=== PATIENT | male | born 2000 | race African-American/Black ===

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

== ENCOUNTER 2021-11-18 17:22 | Emergency (ER) | payer OTHER ==
[~2021-11-18] VITALS: Ht 182.9 cm; Wt 90.0 kg
[2021-11-18 17:23] VITALS: BP 139/89
[2021-11-18] MEDS ORDERED: AMOX875T2 PO (18:23)
[2021-11-18] MEDS ORDERED: PERI0.126 PO (18:23)
== END 2021-11-18 18:55 | disposition home or self-care (01) ==
LOC: M ED 17:22
DX: K04.7 Periapical abscess without sinus (principal)